=== PATIENT | male | born 1940 | race Caucasian/White ===

== ENCOUNTER → 2017-06-22 | Day surgery (SDC) | payer BC ==
[2017-06-13 13:02] VITALS: Ht 188 cm; Wt 83.6 kg
[~2017-06-22] VITALS: Ht 188 cm; Wt 83.6 kg
[~2017-06-22] MED LIST: ACETAMINOPHEN 325 MG TAB PO PRN; AMVISC PLUS 0.8ML SYRINGE INT OCU ONE; ASPI81TA28 PO; ATROPINE SULFATE 0.1 MG/ML 5ML SYR IV PRN; BSS FLUSH ONE; DONE5TAB9 PO; ENDOCOAT 0.85ML SYRINGE INT OCU ONE; EpHEDrine SULFATE INJ 50 MG/ML AMP IV PRN; EpINEphrine INJ 1MG/ML AMP 1 MG/ML AMP ONE; LACTATED RINGER'S 1000ML 500 ML IV SCH; LIDOCAINE 4% OP SOLN DROP CHARGE ONE; LIDOCAINE 4% OP SOLN DROP CHARGE OPL SCH; LIDOCAINE HCL 1% MPF 2 ML VIAL ONE; METO25TA56 PO; MIDAZOLAM HCL 1 MG/ML 2ML VIAL ONE; MIX: 4ML BSS 1ML EPI 1:1000 PF TOP ONE; MOXIFLOXACIN OPH SOLN PER DROP CHARGE ONE; POVIDONE-IODINE OP SOLN 30 ML BTL ONE; PROPARACAINE 0.5% OP SOLN PER DROP CHARGE OPL SCH; SIMV40TA2 PO; TOBRAMYCIN/DEXAMETHASONE OPH OINT PER APPLN CHARGE ONE
--- NOTE | 2017-06-22 07:24 | History & Physical Bridge - SC ---
H&P Re-Evaluation Bridge Note: I have examined the patient, reviewed the History & Physical and in the interval since the performance of the History & Physical I have noted the following changes of clinical significance: No changes noted
[2017-06-22] MEDS: PHENYLEPHRINE HCL 2.5% OP SOLN PER DROP CHARGE OPL SCH ×3 (07:27→07:37)
[2017-06-22] MEDS: TROPICAMIDE 1% OP SOLN PER DROP CHARGE OPL SCH ×3 (07:28→07:38)
[2017-06-22] MEDS: CYCLOPENTOLATE HCL 1% OP SOLN PER DROP CHARGE OPL SCH ×3 (07:29→07:39)
[2017-06-22] MEDS: MOXIFLOXACIN OPH SOLN PER DROP CHARGE OPL SCH ×3 (07:30→07:40)
--- NOTE | 2017-06-22 08:36 | [facility] Post Operative Brief Note ---
Immediate Operative Summary Operative Date Jun 22, 2017. Pre-Operative Diagnosis Left Eye Cataract Post-Operative Diagnosis Same Procedure(s) Performed Left Cataract Phacoemulsification With Intraocular Lens Implant Surgeon Dr. Dilcia Odonnell Utility Operator Yarn Surgeon(s) None Estimated Blood Loss 0 Findings Consistent with Post-Op Diagnosis Specimens None Anesthesia Type MAC Complication(s) none Disposition Accompanied Pt To Recovery: no Disposition:
--- NOTE | 2017-06-22 08:37 | [facility] Operative Report ---
Operative Report Date of Service Jun 22, 2017. Operative Report DATE OF OPERATION: 06/22/17 PREOPERATIVE DIAGNOSIS: Senile nuclear cataract, left eye POSTOPERATIVE DIAGNOSIS: Senile nuclear cataract, left eye PROCEDURE PERFORMED: Phacoemulsification with intraocular lens implantation, left eye SURGEON: Dr. Buddy Odonnell ANESTHESIA: Topical with 1% intracameral lidocaine and monitored anesthesia care COMPLICATIONS: None DESCRIPTION OF PROCEDURE: After positively identifying the patient both verbally and by wristband in the preoperative area, the left eye was marked as the operative eye. The patient was then brought back to the operating room by the anesthesia and nursing staff where they were given a drop of Lidocaine and betadine into the operative eye. They were then sterilely prepped and draped in the standard fashion typical for ophthalmic surgery. Steri-strips were placed along the upper eyelids to keep the lashes back, and a lid speculum was placed into the operative eye. At this point, a documented time out was performed with members of the ophthalmology, nursing, and anesthesia staffs all agreeing upon the correct patient, correct location for surgery, correct procedure, and correct type and power of intraocular lens to be implanted. The microscope was then swung into position. First, a paracentesis wound was made using a sideport blade. Then, in sequence, 1% preservative-free lidocaine followed by Endocoat viscoelastic was injected into the anterior chamber. Next , the main incision was made with a keratome blade in triplanar fashion. A sharp cystotome was introduced into the eye and used to create a tear in the anterior capsule, which was directed into a continuous curvilinear capsulorrhexis using Utrata forceps. Hydrodissection was then performed with BSS on a flat-tip cannula. Next, the phacoemulsification handpiece was introduced into the eye and used to remove the nucleus in a stop and chop fashion. This was done without complication and then the irrigation-aspiration handpiece was introduced into the eye and used to remove all remaining cortical and epinuclear material. Amvisc was then injected into the anterior chamber as well as into the capsular bag and using the lens injector system, an MX60 15.5 D lens, serial number [id number], and expiration date 10/2019 was injected into the capsular bag and rotated into the correct position. Next, the irrigation- aspiration handpiece was used to remove all remaining Amvisc. BSS was used to hydrate the main wound, and then BSS was injected into the paracentesis site to reach physiologic pressure and then the main wound was checked and found to be watertight. The patient was given drops of Vigamox and Tobradex ointment into the operative eye, and then the surrounding area was cleaned and dried. A clear plastic shield was placed over the eye and the patient was then sat up and taken from the operating room by the anesthesia staff having tolerated the procedure well and suffering no complications. DISPOSITION: The patient was returned to the recovery room in stable condition. I attest to the content of the Intraoperative Record and any orders documented therein. Any exceptions are noted below.
--- NOTE | 2017-06-22 08:38 | Discharge Instructions-SurgCtr ---
Discharge Instructions Date of Service Jun 22, 2017. Visit Reason for Visit: Cataract Left Eye Discharge Discharge Diagnosis / Problem: left cataract Discharge Goals Goal(s): Decrease discomfort, Improve function Activity Recommendations Activity Limitations: as noted below Anesthesia . Post Anesthesia Instructions: If you have had General Anesthesia or IV Sedation: * Do not drive today. * Resume driving when surgeon permits. * Do not make important decisions or sign legal documents today. * Call surgeon for: 1. Temperature elevations greater than 101 degrees F. 2. Uncontrollable pain. 3. Excessive bleeding. 4. Persistent nausea and vomiting. 5. Medication intolerance (nausea, vomiting or rash). * For nausea and vomiting use only clear liquids such as: tea, soda, bouillon until nausea subsides, then gradually increase diet as tolerated. * If you have any concerns or questions, call your surgeon's office. If physician is unavailable and it is an emergency, call 911 or go to the nearest emergency room. . Instructions / Follow-Up Instructions / Follow-Up ACTIVITY RECOMMENDATIONS: * Light activities. * You may walk outside, read, watch television. * You may notice redness on the white part of the eye and some blurry vision - this is normal. MEDICATIONS: Resume previous medications unless instructed otherwise by your surgeon. Start all eye drops at 10:30 am today: * Eye drops (today): Prednisone - one drop in operative eye every 2 hours while awake Ofloxacin - one drop in operative eye every 2 hours while awake Prolensa - one drop in operative eye daily SPECIAL CARE INSTRUCTIONS: * Tape plastic shield over eye to sleep at night. Call your doctor at with any concerns or problems. FOLLOW UP VISIT: Follow-up with Dr Odonnell at [facility] as scheduled. Diet Recommendations Home Diet: no limitations Procedures Procedures Performed: Left Cataract Phacoemulsification With Intraocular Lens Implant Pending Studies Studies pending at discharge: no Medical Emergencies . Who to Call and When: Medical Emergencies: If at any time you feel your situation is an emergency, please call 911 immediately. . Non-Emergent Contact Non-Emergency issues call your: Surgeon . . "Provider Documentation" section prepared by Buddy Odonnell. .
[2017-06-22 08:39] VITALS: TEMP 36.7
[2017-06-22 08:59] VITALS: BP 121/74; PULSE 58; O2SAT 98
--- NOTE | 2017-06-22 09:03 | Anesthesia Progress Nt - [facility] ---
Anesthesia Post Op Note Date & Time Jun 22, 2017 at 09:02 Vital Signs Pain Intensity: 0 Vital Signs Past 12 Hours Date Time Temp Pulse Resp B/P (MAP) Pulse Ox O2 Delivery O2 Flow Rate FiO2 06/22/17 08:59 58 16 121/74 (90) 98 Room Air 06/22/17 08:39 36.7 53 12 114/70 (85) 96 Room Air 06/22/17 07:17 36.4 63 18 127/78 (94) 97 Room Air Notes Mental Status: alert / awake / arousable, participated in evaluation Pt Amnestic to Procedure: Yes Nausea / Vomiting: adequately controlled Pain: adequately controlled Airway Patency, RR, SpO2: stable & adequate BP & HR: stable & adequate Hydration State: stable & adequate Anesthetic Complications: no major complications apparent
== END | disposition home health service (06) ==
LOC: X.SURG 07:04
PROVIDERS: ATTEND Ophthalmology
DX: H25.12 Age-related nuclear cataract, left eye (principal); Z87.891 Personal history of nicotine dependence; Z88.1 Allergy status to other antibiotic agents; Z79.82 Long term (current) use of aspirin; Z79.899 Other long term (current) drug therapy; Z98.890 Other specified postprocedural states

== ENCOUNTER 2022-08-05 12:56 | Observation (INO) ==
--- NOTE | 2022-08-05 13:36 | Emergency Department Note ---
Impression & Plan Thoracic back pain ADMIT ED Provider Note HPI: The patient is an 82-year-old male with history of mild memory impairment, atrial fibrillation currently on Eliquis and metoprolol, who presents emergency department with a chief complaint of an episode of weakness and difficulty getting out of his chair today. Patient has been to the ED several times this month after a fall about 10 days ago. Patient was initially seen as an outpatient at a [facility] facility, placed in a walking boot for what he tells me was a fracture in his foot. Patient was subsequently seen here in the ED on 07/30 as well as 08/01 for thoracic back pain. He was diagnosed with compression fracture in the thoracic spine at that time. Today, the patient presents with his neighbor who is at the bedside who is a physician, states that the patient had an episode today where he was in a chair for anywhere from 20 to 60 minutes and he could not get up from a chair. Patient states at times when he tried he had some pain in his thoracic spine as well as some lightheadedness. Patient denies any recent falls. ROS: - Per HPI *Outpatient medications and allergy history reviewed. *Pertinent external medical records reviewed. PE: General: Alert HEENT: Normocephalic, trachea midline Eyes: Extraocular eye movement is intact, no scleral erythema Pulmonary: Clear to auscultation bilaterally, no wheezing Cardio: Regular rate and rhythm GI: Abdomen is soft to palpation : No suprapubic tenderness MSK: No evidence of trauma or malformation of the extremities, no edema Skin: No evidence of rash Neuro: Alert, no focal deficits Psychiatric: Cooperative hall monitor: (As interpreted by myself): - An order was placed for continuous cardiac monitoring - Patient was noted to be in sinus rhythm with a rate of 55 EKG: (As interpreted by myself): Rate: 50 Rhythm: Sinus rhythm Intervals: Within normal limits ST changes: No ST elevation Time: 1312 Interventions provided in ED: -Percocet Differential diagnosis: Acute arrhythmia to include SVT, atrial fibrillation, ventricular tachycardia, generalized weakness secondary to sepsis/infection, acute coronary syndrome, hyper/hypothyroidism, acute electrolyte abnormality, amongst other potential pathologies. Medical Decision Making: Patient presented to the emergency department with a chief complaint of some difficulty getting out of a chair earlier today. Presents with his neighbor at the bedside who is a physician. 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 Neighbor at the bedside does mention the patient had a syncopal event several weeks ago of which it is thought his outpatient providers were not aware. This is also in the setting of a recent fall resulting in compression fracture in the thoracic spine, and patient does state that he is still having some back pain. IV was established, lab work obtained, patient was maintained on hall monitor, lab work shows no leukocytosis, hemoglobin is stable, platelet count within normal limits, CMP does not show any critical electrolyte abnormalities, magnesium is within normal limits, troponin is negative, BNP only mildly elevated at 133, TSH is within normal limits. EKG reviewed shows sinus rhythm with sinus bradycardia, no interval prolongation, patient is noted to be on metoprolol which is likely the source for his bradycardia. On review of the patient's outpatient records he did have previous Holter monitor showing tachybradycardia syndrome and recent Zio patch. I discussed the patient's presentation with on-call cardiology, Dr. Allen, he was in agreement to evaluate the patient at the bedside given his issues in the past with arrhythmia, he does tell me that upon review of [facility] records patient did have multiple episodes of SVT on recent Zio patch monitor. This could potentially be the source for some of his episodes of weakness, lightheadedness, and his recent syncopal event. In addition, patient has been having ambulatory issues in addition to back pain with his recent fall. His is currently out of town. He does have some memory issues. I feel would be safe this is a patient were admitted following my discussion with Dr. Allen he is in agreement. [facility] hospitalist service was therefore consulted, case was discussed with the on-call midlevel provider, Hazel Morris PA-C, and the patient was placed for admission in stable condition. Consultants: - Cardiology, Dr. Allen - Hospitalist, Dr. Huff Disposition discussion held by myself with: Patient Diagnosis: 1. Generalized weakness, acute 2. Sensation of lightheadedness, acute 3. History of tachybradycardia syndrome 4. Thoracic compression fracture, subacute Disposition: ADMIT Andry Luke DO Emergency Medicine Past Med/Surg History Medical History BPH (benign prostatic hyperplasia) History of anesthesia reaction unable to void following both Rt and Lt CEA -- required cath History of atrial fibrillation dx approx 1 year ago; on eliquis; follows with Dr. Chang Hyperlipidemia Sleep apnea unable to tolerate CPAP Surgical History History of colonoscopy History of esophagogastroduodenoscopy (EGD) History of left inguinal hernia repair History of left-sided carotid endarterectomy History of right inguinal hernia repair History of right-sided carotid endarterectomy History of tonsillectomy Family History Other Family history non-contributory No family history of adverse response to anesthesia Social History Smoking Status: Former smoker Second Hand Exposure: No; Do You Dip or Chew Tobacco: No; Hx Alcohol Use: No Hx Substance Use: No Preferred Language: Latvian Communication Ability: Effective Power Sweeper Operator Required: No Beliefs That Will Affect Care: None Current Living Situation: Spouse Feels Safe at Home: Yes Assistive Devices: Brace/Splint/Immobilizer and Glasses Allergies Allergies Allergy/AdvReac Type Severity Reaction Status Date / Time ciprofloxacin [Cipro] Allergy Intermediate RASH Verified 07/30/22 02:19 clarithromycin Allergy Intermediate RASH ON Verified 07/30/22 02:19 BOTH ARMS Home Meds Home Medications Medication Instructions Recorded Confirmed ibuprofen 200 mg tablet (Advil) 400 mg PO Q6H PRN Pain 08/18/20 07/30/22 simvastatin 40 mg tablet 40 mg PO QAM 08/18/20 08/05/22 tamsulosin 0.4 mg capsule 0.4 mg PO QAM 08/18/20 08/05/22 apixaban 5 mg tablet (Eliquis) 5 mg PO BID 07/30/22 08/05/22 calcitonin (salmon) 200 200 unit intranasal (ALT) QA 07/30/22 08/05/22 unit/actuation nasal spray citalopram 10 mg tablet 10 mg PO QAM 07/30/22 08/05/22 glucosamine sulf dipot 1 cap PO QAM 07/30/22 08/05/22 chlr,msm,chond 550 mg-C 30 mg-chrissy 1 mg capsule (Glucosamine Chondroitin) metoprolol tartrate 25 mg tablet 25 mg PO BID PRN Palpitations 07/30/22 08/05/22 kyvhmodfbsha-fsu-jwcze acid-vit 1 tab PO DAILY 07/30/22 08/05/22 K-lycop 400 mcg-20 mcg-370 mcg tablet (Men's 50 Plus Multivitamin) omega-3 fatty acids 1,000 mg 3,000 mg PO QAM 07/30/22 07/30/22 capsule baclofen 10 mg tablet 10 mg PO BID PRN Pain 08/05/22 08/05/22 turmeric root extract 500 mg 500 mg PO QAM 08/05/22 08/05/22 capsule Previous Rx's Medication Instructions Recorded hydrocodone 5 mg-acetaminophen 325 1 tab PO Q6H PRN pain #12 tabs 08/01/22 mg tablet Results & Data (ED) Vital Signs Vital Signs - 24 hr 08/05/22 13:00 08/05/22 13:35 08/05/22 13:30 Temperature 36.4 C L Temperature Source Temporal Artery Scan Pulse Rate 55 L 54 L 55 L Pulse Rate from SpO2 Sensor 55 L Pulse Rhythm Regular Respiratory Rate 20 16 16 Respiratory Effort / Characteristics Non-Labored Spontaneous Respiratory Depth Normal Respiratory Pattern Regular Blood Pressure 106/55 L 136/77 Blood Pressure Mean 72 96 Pulse Oximetry 98 98 94 Oxygen Delivery Method Room Air Room Air Sepsis Recent Fever Within 48 Hours No Sepsis New/Unexplained Change in Mental Status No Sepsis Action Taken by Nursing No Action Required 08/05/22 14:01 08/05/22 14:18 08/05/22 15:31 Temperature Temperature Source Pulse Rate 56 L 57 L 62 Pulse Rate from SpO2 Sensor 56 L 63 Pulse Rhythm Respiratory Rate 16 17 Respiratory Effort / Characteristics Respiratory Depth Respiratory Pattern Blood Pressure 128/72 133/96 Blood Pressure Mean 90 108 Pulse Oximetry 99 99 Oxygen Delivery Method Sepsis Recent Fever Within 48 Hours Sepsis New/Unexplained Change in Mental Status Sepsis Action Taken by Nursing 08/05/22 17:30 Temperature Temperature Source Pulse Rate 60 Pulse Rate from SpO2 Sensor 60 Pulse Rhythm Respiratory Rate 16 Respiratory Effort / Characteristics Respiratory Depth Respiratory Pattern Blood Pressure 131/84 Blood Pressure Mean 99 Pulse Oximetry 98 Oxygen Delivery Method Sepsis Recent Fever Within 48 Hours Sepsis New/Unexplained Change in Mental Status Sepsis Action Taken by Nursing Laboratory Data 08/05/22 13:32 08/05/22 13:32 Lab Results 08/05/22 08/05/22 08/05/22 Range/Units 13:32 13:32 13:32 WBC 5.35 (4.8-10.8) K/ul RBC 5.09 (4.70-6.10) M/uL Hgb 15.6 (14.0-18.0) g/dl Hct 45.0 (42.0-52.0) % MCV 88.4 (80.0-100.0) fL MCH 30.6 (25.0-34.0) pg MCHC 34.7 (32.0-36.0) g/dL RDW Std Deviation 40.2 (36.4-46.3) fL RDW Coeff of Vanessa 12.3 (11.5-14.5) % Plt Count 240 (130-400) K/uL MPV 9.7 (9.4-12.4) fL Immature Gran % (Auto) 0.2 % Neut % (Auto) 60.4 % Lymph % (Auto) 29.3 % Armstrong % (Auto) 9.5 % Eos % (Auto) 0.4 % Baso % (Auto) 0.2 % Neut # (Auto) 3.23 (1.40-6.50) K/uL Lymph # (Auto) 1.57 (1.2-3.4) K/uL Armstrong # (Auto) 0.51 (0.11-0.59) K/uL Eos # (Auto) 0.02 (0-0.50) K/uL Baso # (Auto) 0.01 (0-0.2) K/uL Immature Gran # (Auto) 0.01 (0.01-0.20) K/uL PT 11.6 (9.0-12.0) Seconds INR 1.1 (0.9-1.1) Sodium 138 (136-145) mmol/L Potassium 4.3 (3.5-5.1) mmol/L Chloride 101 (98-107) mmol/L Carbon Dioxide 29 (21-32) mmol/L Anion Gap 8 (3-11) BUN 20 (6-23) mg/dl Creatinine 0.94 (0.6-1.4) mg/dl Est Cr Clr Drug Dosing Not Reportable Est GFR ( Amer) 87.8 ml/min Est GFR (Non-Af Amer) 75.7 ml/min BUN/Creatinine Ratio 21.3 H (10-20) Glucose 94 (70-99(Fasting)) mg/dl Calcium 10.2 (8.6-10.3) mg/dl Magnesium 2.0 (1.7-2.4) mg/dl Total Bilirubin 0.9 (0.2-1.0) mg/dl AST 32 (13-39) U/L ALT 28 (7-52) U/L Alkaline Phosphatase 56 (34-104) U/L Troponin I High Sens 16.3 (0-20) pg/ml B-Natriuretic Peptide (0-100) pg/ml Total Protein 7.4 (6.0-8.3) gm/dl Albumin 4.2 (3.4-5.0) gm/dl Globulin 3.2 (2.5-4.0) gm/dl Albumin/Globulin Ratio 1.3 (0.9-2) Lipase 13 (11-82) U/L TSH (0.300-4.500) uIu/ml 08/05/22 08/05/22 Range/Units 13:32 13:39 WBC (4.8-10.8) K/ul RBC (4.70-6.10) M/uL Hgb (14.0-18.0) g/dl Hct (42.0-52.0) % MCV (80.0-100.0) fL MCH (25.0-34.0) pg MCHC (32.0-36.0) g/dL RDW Std Deviation (36.4-46.3) fL RDW Coeff of Vanessa (11.5-14.5) % Plt Count (130-400) K/uL MPV (9.4-12.4) fL Immature Gran % (Auto) % Neut % (Auto) % Lymph % (Auto) % Armstrong % (Auto) % Eos % (Auto) % Baso % (Auto) % Neut # (Auto) (1.40-6.50) K/uL Lymph # (Auto) (1.2-3.4) K/uL Armstrong # (Auto) (0.11-0.59) K/uL Eos # (Auto) (0-0.50) K/uL Baso # (Auto) (0-0.2) K/uL Immature Gran # (Auto) (0.01-0.20) K/uL PT (9.0-12.0) Seconds INR (0.9-1.1) Sodium (136-145) mmol/L Potassium (3.5-5.1) mmol/L Chloride (98-107) mmol/L Carbon Dioxide (21-32) mmol/L Anion Gap (3-11) BUN (6-23) mg/dl Creatinine (0.6-1.4) mg/dl Est Cr Clr Drug Dosing Est GFR ( Amer) ml/min Est GFR (Non-Af Amer) ml/min BUN/Creatinine Ratio (10-20) Glucose (70-99(Fasting)) mg/dl Calcium (8.6-10.3) mg/dl Magnesium (1.7-2.4) mg/dl Total Bilirubin (0.2-1.0) mg/dl AST (13-39) U/L ALT (7-52) U/L Alkaline Phosphatase (34-104) U/L Troponin I High Sens (0-20) pg/ml B-Natriuretic Peptide 133 H (0-100) pg/ml Total Protein (6.0-8.3) gm/dl Albumin (3.4-5.0) gm/dl Globulin (2.5-4.0) gm/dl Albumin/Globulin Ratio (0.9-2) Lipase (11-82) U/L TSH 0.442 (0.300-4.500) uIu/ml Administered Medications Discontinued Medications Oxycodone/Acetaminophen (Oxycodone/Acetaminophen 5mg/325mg Tab) 1 tab PO NOW STA Stop: 08/05/22 16:45 Last Admin: 08/05/22 16:55 Dose: 1 tab Documented By: MT Imaging Data Radiologist's Impression: Chest X-Ray 08/05/22 13:15 XR chest 1V portable HISTORY: Atypical chest pain. COMPARISON: Chest 08/18/2020. FINDINGS: The cardiac silhouette is borderline enlarged. This is similar to the prior study. The lungs are clear. No pleural effusions. No pneumothorax. IMPRESSION: No significant change compared to the prior study. No acute process. ACT 112: Negative or not required by law. Electronically signed by: Mehdi Luz M.D. 08/05/2022 1:47 PM Discharge Plan Visit Data Chief Complaint: Cardiac Assessment Stated Complaint: HEART FLUTTERS,BACK PAIN,FALLS ED Provider: Andry Luke Discharge Problem: Thoracic back pain Forms Stand Alone Forms: My [facility] Prescriptions Prescriptions: No Action omega-3 fatty acids 1,000 mg Capsule 3,000 mg PO QAM citalopram 10 mg tablet 10 mg PO QAM calcitonin (salmon) [FORTICAL] 200 unit/actuation Velva,Non-Aerosol 200 unit intranasal (ALT) QAM metoprolol tartrate 25 mg tablet 25 mg PO BID PRN (Reason: Palpitations) Rx Instructions: MAY TAKE UP TO 2 DAILY Men's 50 Plus Multivitamin 400-20-370 mcg Tablet 1 tab PO DAILY Eliquis 5 mg tablet 5 mg PO BID Glucosamine Chondroitin 550-30-1 mg Capsule 1 cap PO QAM hydrocodone-acetaminophen 5-325 mg tablet 1 tab PO Q6H PRN (Reason: pain) Qty: 12 0RF simvastatin 40 mg tablet 40 mg PO QAM tamsulosin 0.4 mg capsule 0.4 mg PO QAM ibuprofen [Advil] 200 mg Tablet 400 mg PO Q6H PRN (Reason: Pain) turmeric root extract 500 mg Capsule 500 mg PO QAM baclofen 10 mg tablet 10 mg PO BID PRN (Reason: Pain) Referrals Referrals: Leoncio Pryor MD [Primary Care Provider] - Thoracic back pain Qualifiers: Chronicity: acute Back pain laterality: unspecified Qualified Code(s): M54.6 - Pain in thoracic spine
[2022-08-05 13:47] LABS: Basophils # (auto) 0.01 K/uL (0-0.2); Basophils % (auto) 0.2 %; Eosinophils # (auto) 0.02 K/uL (0-0.50); Eosinophils % (auto) 0.4 %; Hemoglobin 15.6 g/dl (14.0-18.0); Immature Granulocytes # (auto) 0.01 K/uL (0.01-0.20); Immature Granulocytes % (auto) 0.2 %; Lymphocytes # (auto) 1.57 K/uL (1.2-3.4); Lymphocytes % (auto) 29.3 %; Mean Corpuscular Hemoglobin 30.6 pg (25.0-34.0); Mean Corpuscular Hgb Conc 34.7 g/dL (32.0-36.0); Mean Corpuscular Volume 88.4 fL (80.0-100.0); Mean Platelet Volume 9.7 fL (9.4-12.4); Monocytes # (auto) 0.51 K/uL (0.11-0.59); Monocytes % (auto) 9.5 %; Neutrophils # (auto) 3.23 K/uL (1.40-6.50); Neutrophils % (auto) 60.4 %; Platelet Count 240 K/uL (130-400); RDW Coefficient of Variation 12.3 % (11.5-14.5); RDW Standard Deviation 40.2 fL (36.4-46.3); Red Blood Count 5.09 M/uL (4.70-6.10); White Blood Count 5.35 K/ul (4.8-10.8)
--- NOTE | 2022-08-05 13:49 | XRay Report ---
XR chest 1V portable HISTORY: Atypical chest pain. COMPARISON: Chest 08/18/2020. FINDINGS: The cardiac silhouette is borderline enlarged. This is similar to the prior study. The lung s are clear. No pleural effusions. No pneumothorax. IMPRESSION: No significant change compared to the prior study. No acute process. ACT 112: Negative or not required by law. Electronically signed by: Mehdi Luz M.D. 08/05/2022 1:47 PM
[2022-08-05 14:07] LABS: Alanine Aminotransferase 28 U/L (7-52); Albumin Globulin Ratio 1.3 (0.9-2); Albumin Level 4.2 gm/dl (3.4-5.0); Alkaline Phosphatase 56 U/L (34-104); Anion Gap 8 (3-11); Aspartate Aminotransferase 32 U/L (13-39); BUN Creatinine Ratio 21.3 (10-20); Bilirubin,Total 0.9 mg/dl (0.2-1.0); Blood Urea Nitrogen 20 mg/dl (6-23); Calcium 10.2 mg/dl (8.6-10.3); Carbon Dioxide 29 mmol/L (21-32); Chloride 101 mmol/L (98-107); Est GFR (African American) 87.8 ml/min; Est GFR (Non-African American) 75.7 ml/min; Globulin 3.2 gm/dl (2.5-4.0); Glucose 94 mg/dl (70-99(Fasting)); Lipase 13 U/L (11-82); Potassium 4.3 mmol/L (3.5-5.1); Sodium 138 mmol/L (136-145); Total Protein 7.4 gm/dl (6.0-8.3)
[2022-08-05 14:09] LABS: Troponin I High Sensitivity 16.3 pg/ml (0-20)
[2022-08-05 14:12] LABS: INR 1.1 (0.9-1.1); Prothrombin Time 11.6 Seconds (9.0-12.0)
[2022-08-05] MEDS ORDERED: oxyCODONE/ACETAMINOPHEN 5mg/325mg TAB PO STA (16:44)
--- NOTE | 2022-08-05 17:53 | Cardiology Consultation ---
Date of Consultation August 05, 2022 Assessment & Plan (1) Thoracic back pain: (2) Tachycardia-bradycardia syndrome: (3) Paroxysmal atrial fibrillation: (4) Dementia: -Patient with multiple emergency room visits, recent T6 compression fracture and fall downstairs with ongoing uncontrolled pain. -Patient with multiple recent falls. Does have a history of borderline tachycardia-bradycardia syndrome, and this could certainly be an arrhythmia component contributing to his falls. -At this point, patient is noted to have an unsteady gait and uncontrolled pain, and hospitalization is being considered for improved analgesia and physical therapy. -What is being performed, we will continue to monitor the heart rate. An updated echocardiogram will be obtained. -We will discuss options/timing of possible pacemaker during this hospital stay or in the future. History of Present Illness History of Present Illness Brennen Bill is an 82 year old male seen in cardiology consultation per the request of Dr Luke due to the patient's history of recent falls and tachycardia-bradycardia syndrome. The patient is accompanied by his personal friend, Dr. Max Chowdary, who is his neighbor. The patient's spouse, Sayra, is out of town at present. The patient has had several recent fall episodes with Emergency department visits in December,, 07/30/2022, 08/01/2022, and again today 08/05/2022. He had recently suffered a T6 compression fracture as well as a fracture of his fifth metatarsal of the right foot and therefore he is in a walking boot. He has had difficulty with ongoing pain related to his back injury. This morning mauricio pimentel woke up and took his hydrocodone. He noted that he was subsequently sitting in a chair and he went to get up to consider taking his baclofen, but he was unable to get up and walk due to feeling wobbly on his feet like he was going to fall. Besides his recent fall on the stairs he had a recent episode where he was standing to void and the next thing he knew he was down on his knees near the commode and he is not certain whether or not he had passed out or even fallen asleep. The patient describes at least 4 recent fall episodes. Looking back, he had a fall with a wrist injury dating back to December, prompting emergency room visit at that time. The patient has a history of dementia with a cognitive impairment, and has some degree of difficulty providing history. At present he states his most significant subjective concern is uncontrolled back pain which she grades as a 4 out of 10. The patient follows with Dr. Chagn of [facility]iology /electrophysiology with most recent outpatient visit in March,. The note describes a history of paroxysmal atrial fibrillation/atrial flutter and concerns for tachycardia-bradycardia syndrome. A 14-day Zio patch monitor worn in February, revealed predominant rhythm of sinus rhythm with average rate of 65 bpm. 587 supraventricular tachycardia episodes however were observed, the longest of which was 1 minute and 49 seconds with average rate of 131 bpm. Atrial fibrillation was observed, 13% atrial fibrillation burden, longest episode of which was 10 hours and 13 minutes with average rate of 86 bpm. No pauses were observed at that time. Pacemaker had been recommended at that time but the patient wanted to think about it. 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 Allergies Allergy/AdvReac Type Severity Reaction Status Date / Time ciprofloxacin [Cipro] Allergy Intermediate RASH Verified 08/05/22 17:54 clarithromycin Allergy Intermediate RASH ON Verified 08/05/22 17:54 BOTH ARMS Home Medications Medication Instructions Recorded Confirmed Type simvastatin 40 mg tablet 40 mg PO QAM 08/18/20 08/05/22 History tamsulosin 0.4 mg capsule 0.4 mg PO QAM 08/18/20 08/05/22 History apixaban 5 mg tablet (Eliquis) 5 mg PO BID 07/30/22 08/05/22 History calcitonin (salmon) 200 200 unit intranasal (ALT) QAM 07/30/22 08/05/22 History unit/actuation nasal spray citalopram 10 mg tablet 10 mg PO QAM 07/30/22 08/05/22 History glucosamine sulf dipot 1 cap PO QAM 07/30/22 08/05/22 History chlr,msm,chond 550 mg-C 30 mg-chrissy 1 mg capsule (Glucosamine Chondroitin) metoprolol tartrate 25 mg tablet 25 mg PO BID PRN Palpitations 07/30/22 08/05/22 History cjfntsezdpfp-bus-gnhmu acid-vit 1 tab PO DAILY 07/30/22 08/05/22 History K-lycop 400 mcg-20 mcg-370 mcg tablet (Men's 50 Plus Multivitamin) hydrocodone 5 mg-acetaminophen 325 1 tab PO Q6H PRN pain #12 tabs 08/01/22 08/05/22 Rx mg tablet baclofen 10 mg tablet 10 mg PO BID PRN Pain 08/05/22 08/05/22 History calcium carb-vit Y2-fbafydebi-ermk 1 tab PO QAM 08/05/22 08/05/22 History 333 mg-200 unit-133 mg-5 mg tablet omega-3 fatty acids-fish oil 684 1 cap PO DAILY 08/05/22 08/05/22 History mg-1,200 mg capsule,delayed release turmeric root extract 500 mg 500 mg PO QAM 08/05/22 08/05/22 History capsule Patient History Medical History BPH (benign prostatic hyperplasia) History of anesthesia reaction unable to void following both Rt and Lt CEA -- required cath History of atrial fibrillation dx approx 1 year ago; on eliquis; follows with Dr. Chang Hyperlipidemia Sleep apnea unable to tolerate CPAP Surgical History History of colonoscopy History of esophagogastroduodenoscopy (EGD) History of left inguinal hernia repair History of left-sided carotid endarterectomy History of right inguinal hernia repair History of right-sided carotid endarterectomy History of tonsillectomy Family History Other Family history non-contributory No family history of adverse response to anesthesia Social History Smoking Status: Former smoker Second Hand Exposure: No; Do You Dip or Chew Tobacco: No; Hx Alcohol Use: No Hx Substance Use: No Preferred Language: Divehi Communication Ability: Effective Radiography Technician Required: No Beliefs That Will Affect Care: None Current Living Situation: Spouse Feels Safe at Home: Yes Assistive Devices: Brace/Splint/Immobilizer and Glasses Review of Systems Review of Systems: Obtain a comprehensive review of systems is somewhat technically limited due to cognitive status, but is negative with the exception of recent falls and injuries with noted back pain Denies subjective palpitations. Physical Exam Physical Exam: Temp Pulse Resp BP Pulse Ox O2 Del Method 36.4 C L 60 16 131/84 98 Room Air 08/05/22 13:00 08/05/22 17:30 08/05/22 17:30 08/05/22 17:30 08/05/22 17:30 08/05/22 13:35 Constitutional: no acute distress and not thin Respiratory: normal respiratory effort, lungs clear to auscultation Cardiovascular: RRR, no murmur, no edema Gastrointestinal (Abdomen): normal bowel sounds, soft, nontender, no hepatosplenomegaly Neurologic: PERRL, EOMI, accommodation nl, no face palsy, no dysarthria Results & Data Vital Signs (Past 12 Hours) Vital Signs Temp Pulse Resp BP Pulse Ox O2 Del Method 08/05/22 17:30 60 16 131/84 98 08/05/22 15:31 62 17 133/96 99 08/05/22 14:18 57 L 08/05/22 14:01 56 L 16 128/72 99 08/05/22 13:30 55 L 16 136/77 94 08/05/22 13:35 54 L 16 98 Room Air 08/05/22 13:00 36.4 C L 55 L 20 106/55 L 98 Room Air Laboratory Results Cardiac Enzymes 08/05/22 08/05/22 Range/Units 13:32 13:39 AST 32 (13-39) U/L Troponin I High Sens 16.3 (0-20) pg/ml B-Natriuretic Peptide 133 H (0-100) pg/ml Coagulation 08/05/22 08/05/22 Range/Units 13:32 13:39 PT 11.6 (9.0-12.0) Seconds B-Natriuretic Peptide 133 H (0-100) pg/ml CBC 08/05/22 Range/Units 13:32 WBC 5.35 (4.8-10.8) K/ul RBC 5.09 (4.70-6.10) M/uL Hgb 15.6 (14.0-18.0) g/dl Hct 45.0 (42.0-52.0) % Plt Count 240 (130-400) K/uL Neut # (Auto) 3.23 (1.40-6.50) K/uL Lymph # (Auto) 1.57 (1.2-3.4) K/uL [place] # (Auto) 0.51 (0.11-0.59) K/uL Eos # (Auto) 0.02 (0-0.50) K/uL Baso # (Auto) 0.01 (0-0.2) K/uL Comprehensive Metabolic Panel 08/05/22 Range/Units 13:32 Sodium 138 (136-145) mmol/L Potassium 4.3 (3.5-5.1) mmol/L Chloride 101 (98-107) mmol/L Carbon Dioxide 29 (21-32) mmol/L BUN 20 (6-23) mg/dl Creatinine 0.94 (0.6-1.4) mg/dl Glucose 94 (70-99(Fasting)) mg/dl Calcium 10.2 (8.6-10.3) mg/dl AST 32 (13-39) U/L ALT 28 (7-52) U/L Alkaline Phosphatase 56 (34-104) U/L Total Protein 7.4 (6.0-8.3) gm/dl Albumin 4.2 (3.4-5.0) gm/dl Diagnostic Findings Radiology report of chest x-ray: Borderline enlargement of cardiac silhouette, otherwise no acute cardiopulmonary pathology (1) Thoracic back pain Back pain laterality: midline Chronicity: acute Qualified Code(s): M54.6 - Pain in thoracic spine
--- NOTE | 2022-08-05 18:19 | History & Physical Report ---
Date of Service August 05, 2022 Assessment & Plan (1) Weakness: Plan: Generalized weakness in the last 2-3 weeks. Multiple possible causes. As a result of falls he has foot and back fractures now. Uncontrolled pain and narcotic use may now be contributing to problems. There is also this question of recent syncope and he is being monitored on telemetry with cardiology weighing in on the likelihood that tachybrady may be contributing to symptoms. Will schedule APAP and cont oxycodone and baclofen for breakthrough discomfort. Will add lidocaine patch and consult PT/OT for recs. Also will rule out UTI. (2) Compression fx, thoracic spine: Plan: Pain management per plan above. Will consult ortho spine for recommendations given persistent severe pain. Notes 5/10 pain at rest and 9/10 with lying flat. (3) Paroxysmal atrial fibrillation: Plan: chronic, stable. Cont metoprolol which he was only taking once daily at home. Cont twice daily here. Cont apixaban per home regimen. (4) Depression: Plan: chronic, stable. Cont citalopram per home regimen. (5) Mild cognitive impairment: Plan: developing issue. Higher risk for delirium while hospitalized. Keep good day night cycles. Lovenox Full Code Dispo- pending PT/OT, move to telemetry unit. DO Wilfredo Cuevas Hospitalist History of Present Illness Chief Complaint: weakness Primary Care Provider: Leoncio Pryor MD 82 yo M presented with uncontrolled back pain after multiple recent falls at home. He was found to have foot fractures and a new T6 vertebral compression fracture from outpatient workup of his falls. He is on hydrocodone and baclofen for management of pain and discomfort, and today had an episode of weakness causing him to be unable to arise from his chair for about an hour. He reports feeling very wobbly as if he were going to fall down each time he stood up. He also reports a recent syncopal episode while urinating overnight in his restroom where he found himself on the floor and couldn't remember the fall. He was clear and states he could have even just fallen asleep. A 14 day Zio patch in Feb 2022 revealed predominant sinus rhythm with intermittent SVT. Pacemaker was recommended by outpatient EP doc but has not yet been decided on. With this recent episode of syncope and apparent positional change triggering feelings of unsteadiness in his gait, this was brought into question as a possible cause. For his thoracic spine fracture he was started on calcitonin, baclofen and hydrocodone and doesn't note any side effects that may be contributing to symptoms. He denies any infectious symptoms, including no urinary symptoms, fevers, chills. He denies other constitutional symptoms such as weight loss or night sweats. He eats well and is trying to diet. He practices meditation regularly and meets with friends. He is planning an international trip this summer with his . He does tell me today that he has been having a harder time articulating what he wants to say recently. He knows what he wants to say but can't find the right words. He also reports to finding things to help him orient to time more often. Allergies Allergy/AdvReac Type Severity Reaction Status Date / Time ciprofloxacin [Cipro] Allergy Intermediate RASH Verified 08/05/22 17:54 clarithromycin Allergy Intermediate RASH ON Verified 08/05/22 17:54 BOTH ARMS Home Medications Medication Instructions Recorded Confirmed Type simvastatin 40 mg tablet 40 mg PO [facility] 08/18/20 08/05/22 History tamsulosin 0.4 mg capsule 0.4 mg PO QA 08/18/20 08/05/22 History apixaban 5 mg tablet (Eliquis) 5 mg PO BID 07/30/22 08/05/22 History calcitonin (salmon) 200 200 unit intranasal (ALT) QA 07/30/22 08/05/22 History unit/actuation nasal spray citalopram 10 mg tablet 10 mg PO QAM 07/30/22 08/05/22 History glucosamine sulf dipot 1 cap PO QA 07/30/22 08/05/22 History chlr,msm,chond 550 mg-C 30 mg-chrissy 1 mg capsule (Glucosamine Chondroitin) metoprolol tartrate 25 mg tablet 25 mg PO BID 07/30/22 08/05/22 History suoqvbodermq-mit-rxwof acid-vit 1 tab PO DAILY 07/30/22 08/05/22 History K-lycop 400 mcg-20 mcg-370 mcg tablet (Men's 50 Plus Multivitamin) hydrocodone 5 mg-acetaminophen 325 1 tab PO Q6H PRN pain #12 tabs 08/01/22 08/05/22 Rx mg tablet baclofen 10 mg tablet 10 mg PO BID PRN Pain 08/05/22 08/05/22 History calcium carb-vit U2-wavmmeudo-hjxf 1 tab PO QAM 08/05/22 08/05/22 History 333 mg-200 unit-133 mg-5 mg tablet omega-3 fatty acids-fish oil 684 1 cap PO DAILY 08/05/22 08/05/22 History mg-1,200 mg capsule,delayed release turmeric root extract 500 mg 500 mg PO QAM 08/05/22 08/05/22 History capsule Past Med/Surg History Medical History BPH (benign prostatic hyperplasia) Depression History of anesthesia reaction unable to void following both Rt and Lt CEA -- required cath History of atrial fibrillation dx approx 1 year ago; on eliquis; follows with Dr. Chang Hyperlipidemia Sleep apnea unable to tolerate CPAP Surgical History History of colonoscopy History of esophagogastroduodenoscopy (EGD) History of left inguinal hernia repair History of left-sided carotid endarterectomy History of right inguinal hernia repair History of right-sided carotid endarterectomy History of tonsillectomy Family History Other Family history non-contributory No family history of adverse response to anesthesia Social History Smoking Status: Former smoker Second Hand Exposure: No; Do You Dip or Chew Tobacco: No; Hx Alcohol Use: No Hx Substance Use: No Preferred Language: Indonesian Communication Ability: Effective Production Support Specialist Required: No Beliefs That Will Affect Care: None Current Living Situation: Spouse Feels Safe at Home: Yes Assistive Devices: Brace/Splint/Immobilizer and Glasses Review of Systems Review of Systems: All systems were reviewed and negative except as indicated on HPI above. Physical Exam Physical Exam: CONSTITUTIONAL: WNWD, vitals as above, generally well-appearing, NAD, appears younger than stated age. EYES: pupils are round and equal bilaterally, normal conjunctivae, no scleral icterus ENT: external ear and nose normal,MMM NECK: trachea midline RESPIRATORY: clear to auscultation bilaterally, no crackles, rales or wheezes, normal respiratory effort CARDIOVASCULAR: regular rate and rhythm, S1 and 2 heard without murmurs, gallops or rubs, no JVD, no peripheral edema CHEST: inspection of chest was normal GASTROINTESTINAL: soft, nontender, ND, no guarding MUSCULOSKELETAL: strength 5/5 throughout, head is normocephalic and atraumatic SKIN: warm and dry NEUROLOGIC: CN 2-12 grossly intact, no sensory deficit, normal cognition, normal speech, no tremor PSYCHIATRIC: alert cooperative and oriented to person, place and time. Euthymic mood, makes good eye contact, language grossly intact, recent and remote memory grossly intact. Results & Data Results & Data Vital Signs (Past 12 Hours) Vital Signs Temp Pulse Resp BP Pulse Ox O2 Del Method 08/05/22 17:30 60 16 131/84 98 08/05/22 15:31 62 17 133/96 99 08/05/22 14:18 57 L 08/05/22 14:01 56 L 16 128/72 99 08/05/22 13:30 55 L 16 136/77 94 08/05/22 13:35 54 L 16 98 Room Air 08/05/22 13:00 36.4 C L 55 L 20 106/55 L 98 Room Air Laboratory Results Short CBC 08/05/22 Range/Units 13:32 WBC 5.35 (4.8-10.8) K/ul Hgb 15.6 (14.0-18.0) g/dl Hct 45.0 (42.0-52.0) % Plt Count 240 (130-400) K/uL BMP 08/05/22 13:32 Sodium 138 Potassium 4.3 Chloride 101 Carbon Dioxide 29 BUN 20 Creatinine 0.94 Glucose 94 Calcium 10.2 Liver Function 08/05/22 Range/Units 13:32 Total Bilirubin 0.9 (0.2-1.0) mg/dl AST 32 (13-39) U/L ALT 28 (7-52) U/L Alkaline Phosphatase 56 (34-104) U/L Albumin 4.2 (3.4-5.0) gm/dl Diagnostic Findings Chest X-Ray 08/05/22 13:15 XR chest 1V portable HISTORY: Atypical chest pain. COMPARISON: Chest 08/18/2020. FINDINGS: The cardiac silhouette is borderline enlarged. This is similar to the prior study. The lungs are clear. No pleural effusions. No pneumothorax. IMPRESSION: No significant change compared to the prior study. No acute process. ACT 112: Negative or not required by law. Electronically signed by: Mehdi Luz M.D. 08/05/2022 1:47 PM Code Status & VTE Plan VTE Prophylaxis Plan VTE Prophylaxis will be ordered: Yes (2) Compression fx, thoracic spine Encounter type: subsequent encounter Thoracic vertebra fracture level: T6
[2022-08-05] MEDS ORDERED: POLYETHYLENE (MIRALAX) 17 GM PACK PO PRN (20:01)
[2022-08-05] MEDS ORDERED: BACLOFEN 10 MG TAB PO PRN (20:01)
[2022-08-05] MEDS ORDERED: oxyCODONE HCL IR 5 MG TAB (IMMEDIATE RELEASE) PO PRN (20:01)
[2022-08-05] MEDS: LIDOCAINE 5% 1 PATCH TD SCH (22:02)
[2022-08-05] MEDS: ACETAMINOPHEN 500 MG TAB PO SCH (22:03)
[2022-08-05 22:05] LABS: Appearance Urine Clear (Clear); Bilirubin Urine Negative (Negative); Blood Urine Negative (Negative); Color Urine Dark Yellow; Glucose Urine UA Negative (Negative); Ketones Urine 3+ (Negative); Leukocyte Esterase Urine Negative (Negative); Nitrite Urine Negative (Negative); Protein Urine Negative (Negative); Specific Gravity Urine 1.029 (1.000-1.030); Urobilinogen Urine Negative (Negative)
[2022-08-05] MEDS: APIXABAN 5 MG TABLET PO SCH (22:05)
[2022-08-05] MEDS: METOPROLOL TARTRATE 25 MG TAB PO SCH (22:05)
[2022-08-06] MEDS: ACETAMINOPHEN 500 MG TAB PO SCH ×3 (04:27→20:18)
[2022-08-06] MEDS: Patient's HEIGHT &/or WEIGHT Needed SCH ×2 (05:38→05:39)
--- NOTE | 2022-08-06 07:43 | Electrocardiogram Report ---
Test Reason : Blood Pressure : / mmHG Vent. Rate : 050 BPM Atrial Rate : 050 BPM P-R Int : 128 ms QRS Dur : 092 ms QT Int : 426 ms P-R-T Axes : 072 -67 030 degrees QTc Int : 388 ms Sinus bradycardia Left anterior fascicular block Cannot rule out Anterior infarct , age undetermined Abnormal ECG When compared with ECG of 18-AUG-2020 18:40, Premature ventricular complexes are no longer Present Confirmed by Pietro Francis ([id number]) on 08/06/2022 7:43:46 AM Referred By: Confirmed By:Pietro Francis
[2022-08-06] MEDS: CITALOPRAM 20 MG TAB PO SCH (08:17)
[2022-08-06] MEDS: SIMVASTATIN 40 MG TAB PO SCH (08:17)
[2022-08-06] MEDS: APIXABAN 5 MG TABLET PO SCH ×2 (08:17→20:18)
[2022-08-06] MEDS: TAMSULOSIN HCL 0.4 MG CAP PO SCH (08:17)
[2022-08-06] MEDS: METOPROLOL TARTRATE 25 MG TAB PO SCH ×2 (08:18→21:49)
[2022-08-06] MEDS: LIDOCAINE 5% 1 PATCH TD SCH (08:41)
[2022-08-06] MEDS: CALCITONIN SALMON NA 200 IU/AC 3.7 ML BTL NAE SCH (08:47)
--- NOTE | 2022-08-06 14:51 | Hospitalist Progress Note ---
Date of Service August 06, 2022 Assessment & Plan (1) Weakness: Plan: Generalized weakness in the last 2-3 weeks. Multiple possible causes. As a result of falls he has foot and back fractures now. Uncontrolled pain and narcotic use may now be contributing to problems. There is also this question of recent syncope and he is being monitored on telemetry with cardiology weighing in on the likelihood that tachybrady syndrome may be contributing to symptoms. UA obtained and not c/w UTI Pain management - APAP and cont oxycodone and baclofen for breakthrough discomfort. lidocaine patch consult PT/OT for recs. Echo obtained - sinus rhythm in the 60s persistent during the echocardiogram. Normal LV wall thickness. LV wall motion is abnormal. LVEF 55 to 60%. Grade 1 diastolic dysfunction. There is no prior study available at this institution for direct comparison. Cardiology consulted, appreciate their input (2) Compression fx, thoracic spine: Plan: Pain management per plan above. Ortho spine consulted for recommendations given persistent severe pain. Notes 5/10 pain at rest and 9/10 with lying flat. (3) Paroxysmal atrial fibrillation: Plan: chronic, stable. Cont metoprolol which he was only taking once daily at home. Cont twice daily here. Cont apixaban per home regimen. (4) Depression: Plan: chronic, stable. Cont citalopram per home regimen. (5) Mild cognitive impairment: Plan: developing issue. Higher risk for delirium while hospitalized. Keep good day night cycles. Full Code Dispo- telemetry unit. pending PT/OT Admission and Anticipated Discharge Date Admission Date: August 05, 2022 Subjective Pt seen in follow up of fall, comp. fx Currently laying in bed, in no acute distress Reports back pain, appears fairly comfortable when lying in bed Denies fevers chills, denies abdominal pain, shortness of breath, reports some left-sided chest pain that radiates from his back Patient also seen by cardiology, and echo ordered Ortho spine surgery also consulted Review of Systems Review of Systems: All systems reviewed & are unremarkable except as noted in Subjective Physical Exam Physical Exam: CONSTITUTIONAL: WN/WD, in NAD EYES: pupils are round and equal bilaterally, normal conjunctivae, no scleral icterus ENT: external ear and nose normal,MMM NECK:supple RESPIRATORY: clear to auscultation bilaterally, no crackles, rales or wheezes, normal respiratory effort CARDIOVASCULAR: regular rate and rhythm, without murmurs CHEST: inspection of chest normal GASTROINTESTINAL: soft, nontender, ND, no guarding MUSCULOSKELETAL: head is normocephalic and atraumatic, moves extremities, + R boot SKIN: warm and dry NEUROLOGIC: awake and alert, speech fluent, no facial asymmetry, normal cognition, answers appropriately, moves extremities Results & Data Results & Data Vital Signs (Past 12 Hours) Vital Signs Temp Pulse Pulse Resp BP Pulse Ox O2 Del Method 08/06/22 11:43 36.6 C 60 18 124/81 94 Room Air 08/06/22 06:00 63 08/06/22 07:46 36.5 C 53 L 18 103/59 L 93 Room Air 08/06/22 04:41 36.6 C 54 L 18 117/74 98 Room Air 08/06/22 02:54 36.5 C 58 L 18 104/62 95 Room Air Laboratory Results 08/05/22 08/05/22 Range/Units 21:27 17:50 Urine Color Dark Yellow Urine Appearance Clear (Clear) Urine pH 6.0 (4.5-7.5) Ur Specific [place] 1.029 (1.000-1.030) Urine Protein Negative (Negative) Urine Glucose (UA) Negative (Negative) Urine Ketones 3+ H (Negative) Urine Blood Negative (Negative) Urine Nitrite Negative (Negative) Urine Bilirubin Negative (Negative) Urine Urobilinogen Negative (Negative) Ur Leukocyte Esterase Negative (Negative) SARS-CoV-2, RNA, NAAT NEGATIVE (NEGATIVE) Medications Administered Current Inpatient Medications Acetaminophen (Acetaminophen 500 Mg Tab) 1,000 mg PO Q8H PUMA Stop: 09/04/22 20:00 Last Admin: 08/06/22 11:44 Dose: 1,000 mg Apixaban (Apixaban 5 Mg Tablet) 5 mg PO BID PUMA Stop: 09/04/22 20:59 Last Admin: 08/06/22 08:17 Dose: 5 mg Baclofen (Baclofen 10 Mg Tab) 10 mg PO BID PRN PRN Reason: Pain Stop: 09/04/22 20:00 Calcitonin [place] (Calcitonin [place] Na 200 Iu/Ac 3.7 Ml Btl) 1 sprays ISAC QAM PUMA Stop: 09/05/22 08:59 Last Admin: 08/06/22 08:47 Dose: 1 sprays Citalopram Hydrobromide (Citalopram 20 Mg Tab) [facility] Stop: 09/05/22 08:59 Last Admin: 08/06/22 08:17 Dose: 10 mg Lidocaine (Lidocaine 5% 1 Patch) 1 patch TD QAM [facility] Stop: 09/04/22 20:00 Last Admin: 08/06/22 08:41 Dose: 1 patch Metoprolol Tartrate (Metoprolol Tartrate 25 Mg Tab) 25 mg PO BID [facility] Stop: 09/04/22 20:59 Last Admin: 08/06/22 08:18 Dose: Not Given Miscellaneous (Remove Lidoderm Patch) 1 each N/A DAILY@0800 [facility] Stop: 09/05/22 07:59 Last Admin: 08/06/22 08:41 Dose: 1 each Oxycodone HCl (Oxycodone Hcl Ir 5 Mg Tab (Immediate Release)) 5 mg PO Q4H PRN PRN Reason: severe pain Stop: 08/19/22 20:00 Polyethylene Glycol (Polyethylene (Miralax) 17 Gm Pack) 17 gm PO DAILY PRN PRN Reason: Constipation Stop: 09/04/22 20:00 Simvastatin (Simvastatin 40 Mg Tab) [facility] Stop: 09/05/22 08:59 Last Admin: 08/06/22 08:17 Dose: 40 mg Tamsulosin HCl (Tamsulosin Hcl 0.4 Mg Cap) 0.4 mg PO QAM [facility] Stop: 09/05/22 08:59 Last Admin: 08/06/22 08:17 Dose: 0.4 mg (2) Compression fx, thoracic spine Encounter type: subsequent encounter Thoracic vertebra fracture level: T6
--- NOTE | 2022-08-06 16:02 | Cardiology Progress Note ---
Date of Service August 06, 2022 Assessment & Plan (1) Thoracic back pain: (2) Tachycardia-bradycardia syndrome: (3) Paroxysmal atrial fibrillation: (4) Dementia: Plan: -Patient with multiple emergency room visits, recent T6 compression fracture and fall downstairs with ongoing uncontrolled pain. -Patient with multiple recent falls. Does have a history of borderline tachycardia-bradycardia syndrome, and this could certainly be an arrhythmia component contributing to his falls. -At this point, patient is noted to have an unsteady gait and uncontrolled pain, and hospitalization is being considered for improved analgesia and physical therapy. -Telemetry reviewed overnight without evidence of significant sinus pauses or high degree AV block. HR's well controlled in the 55-70 bpm range. -Continue to monitor on telemetry. No evidence or need for urgent pacemaker insertion. -Continue low dose metoprolol for history of PAF. Currently maintaining NSR. -Recommend PT/OT and continue on monitor with activity. -Echocardiogram ordered Case discussed with Dr. Allen I spent a total of 30 minutes on the date of service in preparation, delivery, and documentation of the care provided to this patient, excluding any time spent in the performance of separately billed services. Fartun Hines PA-C Department of Cardiology, [facility] This chart was completed in part utilizing Speech Voice Recognition Software. Grammatical errors, random word insertions, pronoun errors, and incomplete sentences are an occasional consequence of this system due to software limitations, ambient noise, and hardware issues. Any formal questions or concerns about the content, text, or information contained within the body of this dictation should be directly addressed to the provider for clarification. Admission and Anticipated Discharge Date Admission Date: August 05, 2022 Supervising Physician Co-Signing Physician Notes Supervising Physician Attestation: I have personally performed a history and physical examination on the patient. I agree with the physician hospital nursing assistant's findings and plan as documented with the following additions. Subjective: Patient much improved at the time of my assessment compared to when I had seen him in the emergency department on 08/05/2022. His back pain is improved. His mental status is appropriate and appears to be back to his normal state. Telemetry reveals sinus bradycardia in the 50s to 60s with no significant pauses, more significant bradycardia, or tachycardia episodes. Exam: Cardiovascular: Regular rhythm, no murmurs, no edema Data: Telemetry, sinus rhythm in the 60s with PACs Echocardiogram: Normal LVEF, 55 to 60%, no regional wall motion abnormalities. Assessment and Plan: -Back pain due to T6 compression fracture -Recent falls, question if due to gait instability or arrhythmia -Transient delirium noted 08/05/2022 perhaps related to pain or due to the medications he was receiving for said pain -- Patient much improved clinically on a regimen including acetaminophen and Lidoderm patch. Recommend he remains in the hospital for ongoing optimization of his back pain. Also further cardiac monitoring can be performed. Patient does not have any significant arrhythmia events overnight tonight, anticipate hospital discharge tomorrow from cardiac perspective. -- We will make arrangements for him to have a repeat 7-day Zio patch monitor to be placed next week, perhaps on 08/10/2022, I sent a message to our office to schedule. --Patient already has an electrophysiology appointment on 08/27/2022. I have requested a sooner appointment. The patient tentatively plans to travel to [place] for a conference on 09/26/2022. If pacemaker is deemed to be indicated, would like to allow recovery from his current injuries and the pacemaker in advance of travel. --metoprolol held for parameters while hospitalized. Consider discharge on metoprolol succinate 12.5 mg twice daily. Continue Eliquis 5 mg BID. Case discussed with Dr. Cartagena for the purpose of coordination of care. Per patient request, I called and discussed his case with his friend, Dr Chowdary. Donaldo Allen, DO Subjective Patient resting in bed comfortably. Had uneventful night but did not sleep well. Ongoing back pain reported. No dizziness, lightheadedness, syncope or near syncope. no chest pain or SOB. Review of Systems Review of Systems: All systems reviewed & are unremarkable except as noted in HPI & below Physical Exam Physical Exam: Temp Pulse Resp BP Pulse Ox O2 Del Method 36.4 C L 60 16 131/84 98 Room Air 08/05/22 13:00 08/05/22 17:30 08/05/22 17:30 08/05/22 17:30 08/05/22 17:30 08/05/22 13:35 Constitutional: WD/WN, vitals as above no acute distress Respiratory: normal respiratory effort, lungs clear to auscultation Cardiovascular: RRR, no murmur, no edema Gastrointestinal (Abdomen): normal bowel sounds, soft, nontender, no hepatosplenomegaly Neurologic: PERRL, EOMI, accommodation nl, no face palsy, no dysarthria Results & Data Vital Signs (Past 12 Hours) Vital Signs Temp Pulse Pulse Resp BP Pulse Ox O2 Del Method 08/06/22 15:16 57 L 08/06/22 14:57 36.7 C 61 18 100/63 93 Room Air 08/06/22 11:43 36.6 C 60 18 124/81 94 Room Air 08/06/22 06:00 63 08/06/22 07:46 36.5 C 53 L 18 103/59 L 93 Room Air 08/06/22 04:41 36.6 C 54 L 18 117/74 98 Room Air Laboratory Results Intake and Output 08/06/22 08/06/22 08/06/22 06:59 14:59 22:59 Intake Total 120 / 120 480 / 480 Balance 120 / 120 480 / 480 Intake: Oral 120 / 120 480 / 480 Other: # Unmeasured Voids 2 Weight 79.6 kg Weight Measurement Method Standing Scale Diagnostic Findings Telemetry reviewed: Sinus rhythm with HR's ranging 55-70 bpm. No pauses or high degree AV block. Occ PAC in patterns of bigeminy. Chest xray: IMPRESSION: No significant change compared to the prior study. No acute process. Medications Administered Current Inpatient Medications Acetaminophen (Acetaminophen 500 Mg Tab) 1,000 mg PO Q8H [facility] Stop: 09/04/22 20:00 Last Admin: 08/06/22 11:44 Dose: 1,000 mg Apixaban (Apixaban 5 Mg Tablet) 5 mg PO BID PUMA Stop: 09/04/22 20:59 Last Admin: 08/06/22 08:17 Dose: 5 mg Baclofen (Baclofen 10 Mg Tab) 10 mg PO BID PRN PRN Reason: Pain Stop: 09/04/22 20:00 Calcitonin Chester (Calcitonin Chester Na 200 Iu/Ac 3.7 Ml Btl) 1 sprays ISAC QAM PUMA Stop: 09/05/22 08:59 Last Admin: 08/06/22 08:47 Dose: 1 sprays Citalopram Hydrobromide (Citalopram 20 Mg Tab) 10 mg PO QAM [facility] Stop: 09/05/22 08:59 Last Admin: 08/06/22 08:17 Dose: 10 mg Lidocaine (Lidocaine 5% 1 Patch) 1 patch TD QAM [facility] Stop: 09/04/22 20:00 Last Admin: 08/06/22 08:41 Dose: 1 patch Metoprolol Tartrate (Metoprolol Tartrate 25 Mg Tab) 25 mg PO BID [facility] Stop: 09/04/22 20:59 Last Admin: 08/06/22 08:18 Dose: Not Given Miscellaneous (Remove Lidoderm Patch) 1 each N/A DAILY@0800 [facility] Stop: 09/05/22 07:59 Last Admin: 08/06/22 08:41 Dose: 1 each Oxycodone HCl (Oxycodone Hcl Ir 5 Mg Tab (Immediate Release)) 5 mg PO Q4H PRN PRN Reason: severe pain Stop: 08/19/22 20:00 Polyethylene Glycol (Polyethylene (Miralax) 17 Gm Pack) 17 gm PO DAILY PRN PRN Reason: Constipation Stop: 09/04/22 20:00 Simvastatin (Simvastatin 40 Mg Tab) [facility] [place]: 09/05/22 08:59 Last Admin: 08/06/22 08:17 Dose: 40 mg Tamsulosin HCl (Tamsulosin Hcl 0.4 Mg Cap) 0.4 mg PO QAM [facility] Stop: 09/05/22 08:59 Last Admin: 08/06/22 08:17 Dose: 0.4 mg (1) Thoracic back pain Back pain laterality: midline Chronicity: acute Qualified Code(s): M54.6 - Pain in thoracic spine
[2022-08-06] MEDS ORDERED: DOCUSATE SODIUM/SENNA 50/8.6MG TAB PO STA (23:25)
[2022-08-07] MEDS ORDERED: DOCUSATE SODIUM/SENNA 50/8.6MG TAB PO STA (03:56)
[2022-08-07] MEDS: ACETAMINOPHEN 500 MG TAB PO SCH ×2 (04:00→14:20)
[2022-08-07 06:47] LABS: Hematocrit (blood only) 37.8 % (42.0-52.0); Hemoglobin 13.2 g/dl (14.0-18.0); Mean Corpuscular Hemoglobin 30.6 pg (25.0-34.0); Mean Corpuscular Hgb Conc 34.9 g/dL (32.0-36.0); Mean Corpuscular Volume 87.5 fL (80.0-100.0); Mean Platelet Volume 9.8 fL (9.4-12.4); Platelet Count 220 K/uL (130-400); RDW Coefficient of Variation 12.6 % (11.5-14.5); RDW Standard Deviation 40.7 fL (36.4-46.3); Red Blood Count 4.32 M/uL (4.70-6.10); White Blood Count 5.58 K/ul (4.8-10.8)
[2022-08-07] MEDS ORDERED: Nursing to Pharmacy Communication SCH (07:00)
[2022-08-07 07:31] LABS: BUN Creatinine Ratio 19.5 (10-20); Calcium 9.2 mg/dl (8.6-10.3); Creatinine Clr Calc Pharmacy 75.3 ml/min; Est GFR (African American) 93.8 ml/min; Est GFR (Non-African American) 80.9 ml/min; Magnesium 1.9 mg/dl (1.7-2.4); Phosphorus 3.1 mg/dl (2.5-4.9); Potassium 3.9 mmol/L (3.5-5.1)
[2022-08-07] MEDS: CALCITONIN SALMON NA 200 IU/AC 3.7 ML BTL NAE SCH (09:01)
[2022-08-07] MEDS: APIXABAN 5 MG TABLET PO SCH (09:01)
[2022-08-07] MEDS: CITALOPRAM 20 MG TAB PO SCH (09:01)
[2022-08-07] MEDS: SIMVASTATIN 40 MG TAB PO SCH (09:02)
[2022-08-07] MEDS: TAMSULOSIN HCL 0.4 MG CAP PO SCH (09:02)
[2022-08-07] MEDS: METOPROLOL TARTRATE 25 MG TAB PO SCH (09:10)
--- NOTE | 2022-08-07 12:01 | CT Scan Report ---
THORACIC SPINE CT CT DOSE: 1192.17 mGy.cm HISTORY: back pain, hx of T6 fx TECHNIQUE: Multiaxial CT images of the thoracic spine were performed and reformatted in the sagittal and coronal plane without the use of contrast. A dose lowering technique was utilized adhering to th e principles of ALARA. COMPARISON: None. FINDINGS: Mild dependent changes seen at the lung bases. No pneumothorax. There is an acute to subacu te moderate compression fracture at T6. This demonstrates up to 40% loss of height centrally. No sign ificant retropulsion. There is a mild superior endplate compression fracture at T7. This is technical ly age indeterminate but appears to be chronic. Mild paravertebral edema noted at the T6 level. No si gnificant central canal narrowing by CT technique. IMPRESSION: 1. A moderate acute to subacute compression fracture at T6. 2. A mild superior endplate compression fracture at T7 which is likely old. ACT 112: Negative or not required by law. Electronically signed by: Mehdi Luz M.D. 08/07/2022 11:59 AM
--- NOTE | 2022-08-07 17:32 | Discharge Summary ---
Date of Service August 07, 2022 Admission HPI Per Admitting Provider 82 yo M presented with uncontrolled back pain after multiple recent falls at home. He was found to have foot fractures and a new T6 vertebral compression fracture from outpatient workup of his falls. He is on hydrocodone and baclofen for management of pain and discomfort, and today had an episode of weakness causing him to be unable to arise from his chair for about an hour. He reports feeling very wobbly as if he were going to fall down each time he stood up. He also reports a recent syncopal episode while urinating overnight in his restroom where he found himself on the floor and couldn't remember the fall. He was clear and states he could have even just fallen asleep. A 14 day Zio patch in Feb 2022 revealed predominant sinus rhythm with intermittent SVT. Pacemaker was recommended by outpatient EP doc but has not yet been decided on. With this recent episode of syncope and apparent positional change triggering feelings of unsteadiness in his gait, this was brought into question as a possible cause. For his thoracic spine fracture he was started on calcitonin, baclofen and hydrocodone and doesn't note any side effects that may be contributing to symptoms. He denies any infectious symptoms, including no urinary symptoms, fevers, chills. He denies other constitutional symptoms such as weight loss or night sweats. He eats well and is trying to diet. He practices meditation regularly and meets with friends. He is planning an international trip this summer with his . He does tell me today that he has been having a harder time articulating what he wants to say recently. He knows what he wants to say but can't find the right words. He also reports to finding things to help him orient to time more often. Admission Exam Per Admitting Provider CONSTITUTIONAL: WNWD, vitals as above, generally well-appearing, NAD, appears younger than stated age. EYES: pupils are round and equal bilaterally, normal conjunctivae, no scleral icterus ENT: external ear and nose normal,MMM NECK: trachea midline RESPIRATORY: clear to auscultation bilaterally, no crackles, rales or wheezes, normal respiratory effort CARDIOVASCULAR: regular rate and rhythm, S1 and 2 heard without murmurs, gallops or rubs, no JVD, no peripheral edema CHEST: inspection of chest was normal GASTROINTESTINAL: soft, nontender, ND, no guarding MUSCULOSKELETAL: strength 5/5 throughout, head is normocephalic and atraumatic SKIN: warm and dry NEUROLOGIC: CN 2-12 grossly intact, no sensory deficit, normal cognition, normal speech, no tremor PSYCHIATRIC: alert cooperative and oriented to person, place and time. Euthymic mood, makes good eye contact, language grossly intact, recent and remote memory grossly intact. Principal Diagnosis Weakness, likely secondary to pain medications Discharge Exam CONSTITUTIONAL: WN/WD, in NAD EYES: pupils are round and equal bilaterally, normal conjunctivae, no scleral icterus ENT: external ear and nose normal,MMM NECK:supple RESPIRATORY: clear to auscultation bilaterally, no crackles, rales or wheezes, normal respiratory effort CARDIOVASCULAR: regular rate and rhythm, without murmurs CHEST: inspection of chest normal GASTROINTESTINAL: soft, nontender, ND, no guarding MUSCULOSKELETAL: head is normocephalic and atraumatic, moves extremities, + R boot SKIN: warm and dry NEUROLOGIC: awake and alert, speech fluent, no facial asymmetry, normal cognition, answers appropriately, moves extremities Discharge Data Allergies Allergy/AdvReac Type Severity Reaction Status Date / Time ciprofloxacin [Cipro] Allergy Intermediate RASH Verified 08/05/22 17:54 clarithromycin Allergy Intermediate RASH ON Verified 08/05/22 17:54 BOTH ARMS Consultations 08/05/22 19:49 Consult Orthopedic Surgery Routine 08/05/22 20:01 Consult Cardiology Routine Ordered Studies 08/07/22 10:54 CT thoracic spine wo con Urgent FINDINGS: Mild dependent changes seen at the lung bases. No pneumothorax. There is an acute to subacute moderate compression fracture at T6. This demonstrates up to 40% loss of height centrally. No significant retropulsion. There is a mild superior endplate compression fracture at T7. This is technically age indeterminate but appears to be chronic. Mild paravertebral edema noted at the T6 level. No significant central canal narrowing by CT technique. IMPRESSION: 1. A moderate acute to subacute compression fracture at T6. 2. A mild superior endplate compression fracture at T7 which is likely old. Hospital Course (1) Weakness: Generalized weakness in the last 2-3 weeks. Multiple possible causes. As a result of falls he has foot and back fractures now. Uncontrolled pain and narcotic use may now be contributing to problems. There is also this question of recent syncope and he is being monitored on telemetry with cardiology weighing in on the likelihood that tachybrady syndrome may be contributing to symptoms. UA obtained and not c/w UTI Pain management - APAP , lidocaine patch, and oxycodone prn and baclofen for breakthrough discomfort. 08/07 -discussed with Dr. Valerio, and CT of the thoracic spine was obtained. Pain is currently well controlled, and patient actually denies back pain. From initial PT evaluation, it was recommended that patient returns home, with supervision. Per RN patient ambulates by himself to the bathroom, without any difficulty. Patient is feeling overall much better, and is inquiring about discharging home. Discussed with the patient and his close friends/neighbors, who are willing to check on him after discharge. Patient's is currently out of town. Patient also seen and discussed with cardiology, Echo obtained - sinus rhythm in the 60s persistent during the echocardiogram. Normal LV wall thickness. LV wall motion is abnormal. LVEF 55 to 60%. Grade 1 diastolic dysfunction. There is no prior study available at this institution for direct comparison. -- Will make arrangements for pt to have a repeat 7-day Zio patch monitor to be placed next week, perhaps on 08/10/2022 --Patient already has an electrophysiology appointment on 08/27/2022. Requested a sooner appointment. The patient tentatively plans to travel to [place] for a conference on 09/26/2022. If pacemaker is deemed to be indicated, would like to allow recovery from his current injuries and the pacemaker in advance of travel. --Discharge on metoprolol succinate 12.5 mg twice daily. Continue Eliquis 5 mg BID. (2) Compression fx, thoracic spine: Pain management per plan above. Ortho spine consulted on admission. Discussed w/ Dr. Valerio and CT thoracic spine obtained, as above. Pain is now well controlled. (3) Paroxysmal atrial fibrillation: chronic, stable. Cont eliquis, metoprolol succinate 12.5 mg bid, as above. (4) Depression: chronic, stable. Cont citalopram per home regimen. (5) Mild cognitive impairment: developing issue. Higher risk for delirium while hospitalized. Keep good day night cycles. Total Time Total Time Spent Total Time Spent (In Minutes): 40 Discharge Plan Discharge Items Patient Disposition: Home - Self-Care Reason For Visit: GENERALIZED WEAKNESS, RECENT FALLS, UNCONTROLLED P Discharge Diagnosis: Weakness, likely secondary to pain medications Activity: Per Instructions section Non-emergency contact: Primary Care Provider and Line Installation Supervisor Call non-emergency contact if: you have any medication questions and your symptoms worsen Follow-up/Referrals: Leoncio Pryor MD [Primary Care Provider] - (Date & Time 08/13/2022 12:00 PM Provider Leoncio Pryor MD Department General Internal Medicine [facility] ) Diet: Regular Diet Texture: Easy to Chew Addtl Attending Provider Instructions: Follow-up with your primary care physician, and dewatering filtering supervisor. The appointment with your primary care physician was scheduled for you for August 13. You will be contacted about your appointment with cardiology. In the hospital, you were taking Tylenol 1000 mg every 8 hours. Continue the same dose and frequency. You are also using lidocaine patch, recommend to continue. You can often obtain this [id number], under the name Salonpas. Do not use hydrocodoneacetaminophen, which was prescribed to you previously. Instead, use oxycodone 5 mg, as prescribed as needed for severe pain. Previously, you were also prescribed baclofen, you can continue using the medication, however only use it as needed every 12 hours. If your pain is controlled, do not take the medication. Your metoprolol was changed to metoprolol succinate 12.5 mg twice a day. Recommend to seek help if you need any assistance at home. Please check in with your family and friends frequently. Pending Studies at Discharge: No Stand-Alone Forms: My [facility] [employer], Smoking Cessation Medications and DC Order Prescriptions: New oxycodone 5 mg Tablet 5 mg PO Q4H PRN (Reason: pain) Qty: 10 0RF metoprolol succinate [Toprol XL] 25 mg tablet extended release 24 hr 12.5 mg PO BID Qty: 30 0RF Continued citalopram 10 mg tablet 10 mg PO QAM calcitonin (salmon) 200 unit/actuation [place],Non-Aerosol 200 unit intranasal (ALT) QAM Men's 50 Plus Multivitamin 400-20-370 mcg Tablet 1 tab PO DAILY Eliquis 5 mg tablet 5 mg PO BID Glucosamine Chondroitin 550-30-1 mg Capsule 1 cap PO QAM simvastatin 40 mg tablet 40 mg PO QAM tamsulosin 0.4 mg capsule 0.4 mg PO QAM turmeric root extract 500 mg Capsule 500 mg PO QAM baclofen 10 mg tablet 10 mg PO BID PRN (Reason: Pain) omega-3 fatty acids-fish oil 684-1,200 mg Capsule,Delayed Release(Dr/Ec) 1 cap PO DAILY calcium carb-D3-mag [id number] [phone] [id number] Tablet 1 tab PO QAM Rx Instructions: administer with a meal Discontinued metoprolol tartrate 25 mg tablet 25 mg PO BID Rx Instructions: MAY TAKE UP TO 2 DAILY hydrocodone-acetaminophen 5-325 mg tablet 1 tab PO Q6H PRN (Reason: pain) Qty: 12 0RF Discharge Orders: Discharge Order (Routine); Ordered 08/07/22 Ordered By: Kvng Cartagena Admission Data Admit Date/Time: 08/05/22 18:10 Attending Provider: Kvng Cartagena Admit Provider: Reena Huff Primary Care Provider: Leoncio Pryor Other Providers: Jasbir Valerio ; Donaldo Allen ; Reena Huff
[2022-08-07] MEDS ORDERED: LIDOCAINE 5% 1 PATCH TD SCH (20:00)
== END 2022-08-07 18:10 | disposition home or self-care (01) | DRG 552 ==
LOC: ED 12:56 → SUATTDRO 18:10 → INTOOBSV 18:10 → EDINP 18:10 → 2N 20:02